=== PATIENT | female | born 1935 | race Caucasian/White ===

== ENCOUNTER 2016-11-05 12:40 | Inpatient (IN) | payer MEDICARE, OTHER ==
--- NOTE | ~2016-11-05 | HP ---
History And Physical [id number] [place]. [address] NAME: ROCIO MYERS : 37 STATUS : ADM IN [facility]#: [id number] AGE: 81 ADM/REG DATE : 11/05/16 MR#: [id number] REPORT SERV DATE: 11/05/16 DICTATED BY: SERGE GARBER DATE: 11/05/16 REPORT STATUS : Draft TRANSCRIBED BY: MODL DATE: 11/05/16 DATE OF ADMISSION: 11/05/2016 REASON FOR ADMISSION: Weakness, mild troponinemia, shortness of breath. PRIMARY FRONT DESK REPRESENTATIVE: Dr. Ireland. HISTORY OF PRESENT ILLNESS: Ms Myers is an 81-year-old female with a history of hypertension, hyperlipidemia, diabetes, obesity, and aortic aneurysm being monitored who presents with a very poorly defined and nonspecified symptoms of weakness as well as worsening shortness of breath over the past few days. Her primary complaints, in speaking with her, is significant shortness of breath that came on this morning while she was in the kitchen doing her usual day-to-day activities. She did not have any chest pains or pressure with this. She denies having any palpitations or loss of consciousness as well. EMS was called, and on EMS strip, she was found to be in 2:1 atrial flutter, which spontaneously resolved. Here in the ER, she was found to have a troponin of 0.11 and remained dyspneic. She did not have a CT PE study. We were called for further evaluation and management. In speaking with her, she has no clear cardiac complaints at this time. Her EKG shows no ischemic changes. Her troponin is 0.11. PAST MEDICAL HISTORY: As above. ALLERGIES: PENICILLIN. FAMILY HISTORY: Noncontributory for premature disease. SOCIAL HISTORY: The patient lives alone and functions independently under normal circumstances. HOME MEDICATIONS: 1. Amaryl. 2. Metformin. 3. Nexium. 4. Pravachol. 5. Aspirin. 6. Flonase. 7. Zyrtec. 8. ProAir. 9. Metoprolol. REVIEW OF SYSTEMS: As above, all other systems otherwise negative. PHYSICAL EXAMINATION: VITAL SIGNS: BP 142/96; HR: Pulse 87 sinus; Temperature 98.6. GENERAL: Well developed, well nourished, no acute distress. History And Physical [id number] [facility] [place]. [address] NAME: ROCIO MYERS : 37 STATUS : ADM IN PAT#: [id number] AGE: 81 ADM/REG DATE : 11/05/16 MR#: [id number] REPORT SERV DATE: 11/05/16 DICTATED BY: SERGE GARBER DATE: 11/05/16 REPORT STATUS : Draft TRANSCRIBED BY: HEIDI DATE: 11/05/16 NEURO: Awake, alert and oriented x3; no focal deficits, appropriate mood. HEAD AND NECK: Normocephalic, atraumatic. Dry mucous membranes. Flat JVP. LUNGS: Increased work of breathing. [id number] hypoxia down to the high 80s with minimal exertion. Clear lungs, however, bilaterally. CV: Regular rhythm, normal S1/S2, no murmurs, rubs or gallops. ABD: Soft, non-tender, non-distended, no rebound or guarding. EXT: Warm and dry. No edema. SKIN: Warm, dry and intact; no rash. PERTINENT TEST FINDINGS: EMS strips demonstrate 2:1 atrial flutter. Telemetry shows sinus rhythm and EKG with sinus rhythm. Inferior Q-waves, anterior Q-waves, and LVH with repolarization changes. Chest x-ray without acute cardiopulmonary abnormality. Creatinine 0.92, glucose 179, hemoglobin 14.3, TSH 1.5. Troponin 0.11. UA positive for nitrites, trace leukocyte esterase, and many bacteria. IMPRESSION AND PLAN: Ms Myers is an 81-year-old female with some diabetes, hypertension, hyperlipidemia, and obesity, who presents with nonspecified symptoms, however, with significant dyspnea of relatively subacute to acute onset and unimpressive findings, otherwise. At the top of the differential is pulmonary emboli, therefore I will order a stat CT PE study. In addition, trending cardiac enzymes will be helpful, although she endorses no cardiac symptoms at this time and has no ischemic changes on her EKG. Her troponin elevation is minimal and in the setting of recent atrial flutter this morning is not impressive. She likely has a troponin leak as a result of demand ischemia. Otherwise, it will be helpful to check an echocardiogram if she does state tonight (if her CT PE study is positive or her troponin rises), with additional studies including serial enzymes, consulting the hospitalist to help us with management of diabetes as well as evaluation of possible urinary tract infection and morning labs. An echocardiogram will be helpful in defining her cardiac function as I do not see one recently. VR/MODL Serge Garber MD / [id number] CC: Ryne Donahue DEVONY A
[2016-11-05 12:23] LABS: BASOPHILS 0.7 %; BASOPHILS ABSOLUTE 0.04 10/3/uL (0.0-0.16); EOSINOPHILS 2.6 %; EOSINOPHILS ABSOLUTE 0.14 10/3/uL (0.0-0.53); HEMATOCRIT 42.4 % (36.0-48.0); HEMOGLOBIN 14.3 g/dL (12.0-16.0); LYMPHOCYTES 35.8 %; LYMPHOCYTES ABSOLUTE 1.96 10/3/uL (0.67-4.30); MEAN CORPUS HGB CONC 33.7 g/dL (32.0-36.0); MEAN CORPUSCULAR HEMOGLOB 31.7 pg (26.0-34.0); MEAN PLATELET VOLUME 12.5 fL (9.2-13.0); MONOCYTES 12.8 %; NEUTROPHILS 48.1 %; NEUTROPHILS ABSOLUTE 2.64 10/3/uL (2.02-8.40); PLATELET COUNT 131 10/3/uL (150-400); RED CELL COUNT 4.51 10/6/uL (4.0-5.6); WHITE BLOOD CELLS 5.5 10/3/uL (4.5-10.5)
[2016-11-05 12:26] LABS: ER CBC TAT 0 Hrs 08 MinsN; MANUAL DIFF NO %
[2016-11-05 12:30] LABS: ASCORBIC ACID (UR NOT ORDER) NEG (NEG); BILIRUBIN, URINE NEGATIVE (NEG); ER URINALYSIS TAT 0 Hrs 15 Mins; KETONE, URINE 20 MG/DL (NEG); LEUKOCYTE ESTERASE(NOT OR TRACE (NEG); NITRITE (URINE) POS (NEG); WBC (NOT ORDERED) (RFLEX) 4 (0-5)
[2016-11-05 12:32] LABS: INTERNATIONAL NORMAL RATI 1.2 UNITS (-); PARTIAL THROMBO TIME 30.9 SEC (22.5-37.2); PROTIME (NOT ORD) 14.6 SEC (12.0-14.5)
[~2016-11-05 12:40] MED LIST: AMARYL4 PO; HALF81 PO; LOP25 PO; MULTIVITAMI1 PO; NASONEX NAS; NEXIUM40 PO; PRAVAC PO; PRIN5 PO; PROAIR HFA INH; ZYRTEC ALLGY10 MG PO
[2016-11-05 12:47] LABS: BUN (BLOOD UREA NITROGEN) 11 MG/DL (6-23); CALCIUM, SERUM 9.6 MG/DL (8.5-10.4); CHLORIDE, SERUM 109 MMOL/L (96-112); CO2 (CARBON DIOXIDE) 20 MMOL/L (24-34); CREATININE 0.92 MG/DL (0.55-1.02); GFR AFRICAN AMERICAN 68 ML/MIN (>=60); GFR NON AFRICAN AMERICAN 59 ML/MIN (>=60); GLUCOSE, SERUM 179 MG/DL (60-99); POTASSIUM, SERUM 3.9 MMOL/L (3.5-5.3); SODIUM, SERUM 141 MMOL/L (135-148)
[2016-11-05 12:48] LABS: CHEST PAIN PROFILE TAT 0 Hrs 33 Mins; TROPONIN I 0.11 NG/ML (<0.05)
[2016-11-05] MEDS ORDERED: AMARYL4 PO (14:44)
[2016-11-05] MEDS ORDERED: GLUMETZA500 MG PO (14:45)
[2016-11-05] MEDS ORDERED: NEXIUM40 PO (14:45)
[2016-11-05] MEDS ORDERED: PRAVAC PO (14:46)
[2016-11-05] MEDS ORDERED: HALF81 PO (14:47)
[2016-11-05] MEDS ORDERED: FLONASE NAS (14:48)
[2016-11-05] MEDS ORDERED: THERGRANM PO (14:49)
[2016-11-05] MEDS ORDERED: ZYRTEC ALLGY10 MG PO (14:49)
[2016-11-05] MEDS ORDERED: PROAIR HFA INH (14:50)
[2016-11-05] MEDS ORDERED: LOP25 PO (14:52)
[2016-11-06 01:02] LABS: CPK 71 U/L (0-200); TROPONIN I 0.53 NG/ML (<0.05)
[2016-11-06 04:39] LABS: BASOPHILS 0.7 %; BASOPHILS ABSOLUTE 0.04 10/3/uL (0.0-0.16); EOSINOPHILS 3.9 %; EOSINOPHILS ABSOLUTE 0.23 10/3/uL (0.0-0.53); HEMATOCRIT 41.4 % (36.0-48.0); HEMOGLOBIN 13.7 g/dL (12.0-16.0); LYMPHOCYTES 44.8 %; LYMPHOCYTES ABSOLUTE 2.64 10/3/uL (0.67-4.30); MEAN CORPUS HGB CONC 33.1 g/dL (32.0-36.0); MEAN CORPUSCULAR HEMOGLOB 31.3 pg (26.0-34.0); MEAN CORPUSCULAR VOLUME 94.5 fL (80-100); MEAN PLATELET VOLUME 12.8 fL (9.2-13.0); MONOCYTES 10.4 %; MONOCYTES ABSOLUTE 0.61 10/3/uL (0.21-1.20); NEUTROPHILS 40.2 %; NEUTROPHILS ABSOLUTE 2.37 10/3/uL (2.02-8.40); PLATELET COUNT 130 10/3/uL (150-400); RBC DISTRIBUTION WIDTH 14.1 % (12.0-16.0); RED CELL COUNT 4.38 10/6/uL (4.0-5.6); WHITE BLOOD CELLS 5.9 10/3/uL (4.5-10.5)
[2016-11-06 04:47] LABS: BUN (BLOOD UREA NITROGEN) 11 MG/DL (6-23); CALCIUM, SERUM 9.6 MG/DL (8.5-10.4); CHLORIDE, SERUM 108 MMOL/L (96-112); CO2 (CARBON DIOXIDE) 24 MMOL/L (24-34); CREATININE 0.92 MG/DL (0.55-1.02); GFR AFRICAN AMERICAN 68 ML/MIN (>=60); GFR NON AFRICAN AMERICAN 59 ML/MIN (>=60); GLUCOSE, SERUM 193 MG/DL (60-99); POTASSIUM, SERUM 4.2 MMOL/L (3.5-5.3); SODIUM, SERUM 143 MMOL/L (135-148)
[2016-11-06 04:49] LABS: MANUAL DIFF NO %
[2016-11-06 12:07] LABS: CHOL/HDL RATIO(NOT ORDER) 6.5 (0-5)
[2016-11-06 13:19] LABS: INTERNATIONAL NORMAL RATI 1.2 UNITS (-); PROTIME (NOT ORD) 14.9 SEC (12.0-14.5)
[2016-11-07 04:30] LABS: BASOPHILS 0.7 %; BASOPHILS ABSOLUTE 0.05 10/3/uL (0.0-0.16); EOSINOPHILS ABSOLUTE 0.29 10/3/uL (0.0-0.53); HEMATOCRIT 43.1 % (36.0-48.0); HEMOGLOBIN 14.4 g/dL (12.0-16.0); IMMATURE GRANULOCYTES 0.3 %; IMMATURE GRANULOCYTES ABSOLUTE 0.02 10/3/uL (0.0-0.11); LYMPHOCYTES 28.2 %; LYMPHOCYTES ABSOLUTE 2.07 10/3/uL (0.67-4.30); MEAN CORPUS HGB CONC 33.4 g/dL (32.0-36.0); MEAN CORPUSCULAR HEMOGLOB 31.4 pg (26.0-34.0); MEAN CORPUSCULAR VOLUME 94.1 fL (80-100); MONOCYTES 12.7 %; MONOCYTES ABSOLUTE 0.93 10/3/uL (0.21-1.20); NEUTROPHILS 54.1 %; NEUTROPHILS ABSOLUTE 3.98 10/3/uL (2.02-8.40); PLATELET COUNT 143 10/3/uL (150-400); RBC DISTRIBUTION WIDTH 13.9 % (12.0-16.0); RED CELL COUNT 4.58 10/6/uL (4.0-5.6); WHITE BLOOD CELLS 7.3 10/3/uL (4.5-10.5)
[2016-11-07 04:33] LABS: MANUAL DIFF NO %
[2016-11-07 04:47] LABS: BUN (BLOOD UREA NITROGEN) 13 MG/DL (6-23); CALCIUM, SERUM 9.8 MG/DL (8.5-10.4); CHLORIDE, SERUM 100 MMOL/L (96-112); CO2 (CARBON DIOXIDE) 27 MMOL/L (24-34); CREATININE 0.93 MG/DL (0.55-1.02); GFR AFRICAN AMERICAN 67 ML/MIN (>=60); GFR NON AFRICAN AMERICAN 58 ML/MIN (>=60); GLUCOSE, SERUM 152 MG/DL (60-99); POTASSIUM, SERUM 3.4 MMOL/L (3.5-5.3); SODIUM, SERUM 138 MMOL/L (135-148)
[2016-11-07] MEDS ORDERED: LIPITOR40 PO (08:58)
[2016-11-07] MEDS ORDERED: BUM1 PO (09:01)
== END 2016-11-07 12:00 | disposition home or self-care (01) | DRG 287 ==
LOC: ER 12:40 → 5NO 19:16
PROVIDERS: Emergency Medicine; Internal Medicine Cardiovascular Disease; Nurse Practitioner Family; Student in an Organized Health Care Education/Training Program
PROC: 4A023N7 Measurement of Cardiac Sampling and Pressure, Left Heart, Percutaneous Approach (ICD-10-PCS; principal; 2016-11-06)
PROC: B2111ZZ Fluoroscopy of Multiple Coronary Arteries using Low Osmolar Contrast (ICD-10-PCS; 2016-11-06)
PROC: B2151ZZ Fluoroscopy of Left Heart using Low Osmolar Contrast (ICD-10-PCS; 2016-11-06)
DX: I48.3 Typical atrial flutter (principal); I71.2 Thoracic aortic aneurysm, without rupture; I24.8 Other forms of acute ischemic heart disease; I10 Essential (primary) hypertension; E78.5 Hyperlipidemia, unspecified; E11.9 Type 2 diabetes mellitus without complications; I25.10 Atherosclerotic heart disease of native coronary artery without angina pectoris; Z88.0 Allergy status to penicillin; Z88.2 Allergy status to sulfonamides
CPT/HCPCS: 71010; 71275; 80048; 80061; 81001; 82550; 82553; 82962; 83036; 83735; 84443; 84484; 85025; 85610; 85730; 93005; 93306; 93458; 99152; 99153; 99285; A9270-GY; C1769; J2250; J3010; Q9967